=== PATIENT | male | born 1970 | race Two or more races ===

== ENCOUNTER 2020-01-06 23:27 | Emergency (ER) | payer OTHER ==
[~2020-01-06] VITALS: Ht 165.1 cm; Wt 68.0 kg
[2020-01-06 23:35] VITALS: BP 130/84
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
[2020-01-06] MEDS ORDERED: TDAP [DIPH/PERTUSSIS/TET] 0.5 ML VIAL IM ONE (23:56)
[2020-01-06] MEDS ORDERED: KETOROLAC TROMETHAMINE INJ 60 MG/2 ML VIAL IM ONE (23:56)
--- NOTE | 2020-01-06 23:57 | NUR ---
XRAY AT BEDSIDE
[2020-01-07] MEDS ORDERED: KETOROLAC TROMETHAMINE INJ 60 MG/2 ML VIAL IM ONE
[2020-01-07] MEDS ORDERED: TDAP [DIPH/PERTUSSIS/TET] 0.5 ML VIAL IM ONE
--- NOTE | 2020-01-07 01:14 | NUR ---
Patient discharged to home in stable condition. Written and verbal after care instructions given. Patient verbalizes understanding of instruction.pt. ambulatory with a steady gait
== END 2020-01-07 01:22 | disposition home or self-care (01) ==
LOC: ER 23:28
DX: S80.812A Abrasion, left lower leg, initial encounter (principal); S80.811A Abrasion, right lower leg, initial encounter; R07.89 Other chest pain; F17.210 Nicotine dependence, cigarettes, uncomplicated; E11.9 Type 2 diabetes mellitus without complications; V49.59XA Passenger injured in collision with other motor vehicles in traffic accident, initial encounter; Y93.89 Activity, other specified; Y92.413 State road as the place of occurrence of the external cause; Y99.8 Other external cause status
CPT/HCPCS: 71046; 73590 ×2; 90471; 90715; 96372; 99284; 99406; J1885